=== PATIENT | female | born 1985 | race Two or more races ===

== ENCOUNTER 2020-11-22 07:25 | Inpatient (IN) | payer OTHER ==
[~2020-11-22] VITALS: Ht 157.5 cm; Wt 67.6 kg
[2020-11-22] MEDS ORDERED: PRENATAL TABLE1 EAC1 PO (07:32)
[2020-11-25] MEDS ORDERED: CODE1TAB37 PO (10:23)
[2020-11-25] MEDS ORDERED: IBUPROFEN400 MG PO (10:24)
== END 2020-11-25 11:43 | disposition home or self-care (01) | DRG 788 ==
LOC: SURG-SUITE 07:25 → LDR 07:25 → OB/GYN 18:35 → O/R 18:42 → SURG-SUITE 11-23 10:50
PROVIDERS: ADMIT Obstetrics & Gynecology; ATTEND Obstetrics & Gynecology
PROC: 3E033VJ Introduction of Other Hormone into Peripheral Vein, Percutaneous Approach (ICD-10-PCS; 2020-11-22)
PROC: 10907ZC Drainage of Amniotic Fluid, Therapeutic from Products of Conception, Via Natural or Artificial Opening (ICD-10-PCS; 2020-11-22)
PROC: 4A1HXFZ Monitoring of Products of Conception, Cardiac Rhythm, External Approach (ICD-10-PCS; 2020-11-22)
PROC: 10D00Z1 Extraction of Products of Conception, Low, Open Approach (ICD-10-PCS; principal; 2020-11-22 17:00)
DX: O76 Abnormality in fetal heart rate and rhythm complicating labor and delivery (principal); Z37.0 Single live birth; Z3A.37 37 weeks gestation of pregnancy; Z20.822 Contact with and (suspected) exposure to COVID-19